=== PATIENT | female | born 1960 | race Caucasian/White ===

== ENCOUNTER → 2019-08-11 | Outpatient (CLI) | payer OTHER ==
--- NOTE | 2019-08-11 10:03 | XR ---
EXAM TYPE: LUMBAR SPINE X RAY SERIES COMPARISON: NONE HISTORY: Pain TECHNIQUE: 4 views are submitted. FINDINGS: Alignment is anatomic. The pedicles are intact. The transverse processes are intact. There is no s pondylolysis or spondylolisthesis. Mild diffuse osteopenia. Slight curvature of the spine. Hypertrop hic and degenerative changes seen throughout the vertebral column. IMPRESSION: 1. Multilevel degenerative disc disease and hypertrophic changes. Follow-up MRI recommended..
== END | disposition home or self-care (01) ==
LOC: RADXRYALE 09:14
PROVIDERS: ATTEND Internal Medicine
DX: M51.36 Other intervertebral disc degeneration, lumbar region (principal)
CPT/HCPCS: 72110

== ENCOUNTER → 2024-10-21 | Outpatient (CLI) | payer MEDICARE ==
--- NOTE | 2024-10-21 13:03 | XR ---
EXAMINATION TYPE: XR lumbosacral spine min 4V DATE OF EXAM: 10/21/2024 12:25 PM COMPARISON: Prior lumbar spine x-ray August 11, 2019 CLINICAL INDICATION: Female, 63 years old with history of [id number],[id number] THOR PAIN,LBP, pain TECHNIQUE: Frontal, lateral, and bilateral oblique images of the lumbar spine are obtained. FINDINGS: Persistent slight underlying scoliotic curvature in the lower lumbar spine. New moderate to severe disc space narrowing with vacuum disc phenomenon at the L4-L5 level. Vertebral body heights a re maintained. Overlying soft tissue is unremarkable. IMPRESSION: As above. [facility], , 10/21/2024 1:00 PM
--- NOTE | 2024-10-21 13:06 | XR ---
EXAMINATION TYPE: XR thoracic spine complete DATE OF EXAM: 10/21/2024 12:25 PM COMPARISON: None. CLINICAL INDICATION: Female, 63 years old with history of [id number] THOR PAIN,LBP, pain TECHNIQUE: Frontal, lateral, and swimmer's view of thoracic spine are obtained. FINDINGS: Thoracic spine show S-shaped scoliotic curvature without evidence of acute fracture or disl ocation. Straightening of the thoracic spine is seen on lateral view. Vertebral body heights and dis c space heights are preserved. Visualized ribs are intact bilaterally. IMPRESSION: As above. [facility], , 10/21/2024 1:04 PM
== END | disposition home or self-care (01) ==
LOC: RADXRYALE 12:01
PROVIDERS: ATTEND Internal Medicine
DX: M41.84 Other forms of scoliosis, thoracic region (principal); M51.26 Other intervertebral disc displacement, lumbar region
CPT/HCPCS: 72072; 72110

== ENCOUNTER → 2024-11-10 | Outpatient (CLI) | payer MEDICARE ==
[2024-11-10 14:08] LABS: African American GFR (CKD) >90 (>60 ml/min/1.73 sqM); Blood Urea Nitrogen 15 mg/dL (7-17); Non-African American GFR(CKD) 80 (>60 ml/min/1.73 sqM)
--- NOTE | 2024-11-10 18:10 | CT ---
EXAMINATION TYPE: CT abdomen wo/w con DATE OF EXAM: 11/10/2024 2:42 PM COMPARISON: None. CLINICAL INDICATION: Female, 63 years old with history of R10.12 LEFT UPPER QUADRANT PAIN, LUQ pain, under rib pain TECHNIQUE: Axial images were obtained from above the diaphragm to the pubic rami in the axial plane a t 5 mm thick sections. Reconstructed images are reviewed on the computer in the coronal plane. CONTRAST: 100 mL of Isovue 300. Study performed with Oral Contrast DLP: 764 mGycm, Automated exposure control for dose reduction was used. FINDINGS: Limited CT sections are obtained the lung bases. The lung bases are clear. CT ABDOMEN: Liver: Normal Spleen: Normal Pancreas: Normal Adrenal glands: The adrenal glands are normal. Gallbladder: Normal Kidneys: No masses are evident. No hydronephrosis is present. There is a cyst at the superior pole left kidney measuring 1.6 cm. No renal stones are evident. Delayed images were obtained through the kidneys, which remain unremarkable. Aorta: Vascular calcification is within the aorta. Inferior vena cava: Normal. Limited upper CT PELVIS: Loops of bowel within the abdomen and pelvis are normal. There are loops of bowel which are incom pletely distended or lack oral contrast limiting their evaluation. Appendix: Portion of the appendix visualized is Normal as visualized. IMPRESSION: 1. No suspicious abnormality to account for left upper quadrant pain [facility], , 11/10/2024 6:08 PM
== END | disposition home or self-care (01) ==
LOC: RADCTMAIN 12:56
PROVIDERS: ATTEND Internal Medicine
DX: N28.1 Cyst of kidney, acquired (principal)
CPT/HCPCS: 74170; 82565; 84520